=== PATIENT | female | born 1950 | race Caucasian/White ===

== ENCOUNTER 2018-04-24 15:09 | Outpatient (CLI) | payer MEDICARE, OTHER ==
[~2018-04-24] VITALS: Ht 170.2 cm; Wt 90.0 kg
[2018-04-24 15:38] VITALS: Ht 170.2 cm; Wt 90.0 kg
== END 2018-04-24 16:25 | disposition home or self-care (01) ==
LOC: D.OPS 15:09
DX: M81.0 Age-related osteoporosis without current pathological fracture (principal)

== ENCOUNTER 2019-09-02 08:00 | Outpatient (CLI) | payer MEDICARE, BC ==
[2018-04-24 15:38] VITALS: BMI 31.1
== END 2019-09-02 23:59 | disposition home or self-care (01) ==
LOC: D.MAMMO 08:00
PROVIDERS: ATTEND Family Medicine
DX: Z12.31 Encounter for screening mammogram for malignant neoplasm of breast (principal)

== ENCOUNTER 2019-12-10 14:41 | Outpatient (CLI) | payer MEDICARE, BC ==
[~2019-12-10] VITALS: Ht 170.2 cm; Wt 90.9 kg
[2019-12-10 15:11] VITALS: BP 153/87; Ht 170.2 cm; Wt 90.9 kg
--- NOTE | 2019-12-10 15:24 | NUR ---
1523 PT STATES SHE HAS A 1600 APPT AND MUST LEAVE. DC INSTS GIVEN RELEASED AMB.
== END 2019-12-10 15:23 | disposition home or self-care (01) ==
LOC: D.OPS 14:41
PROVIDERS: ATTEND Family Medicine
DX: M81.0 Age-related osteoporosis without current pathological fracture (principal)

== ENCOUNTER → 2020-05-05 13:59 | Outpatient (CLI) | payer MEDICARE, BC ==
[2019-12-10 15:11] VITALS: BMI 31.4
== END | disposition home or self-care (01) ==
LOC: D.RAD 04-29 08:30
PROVIDERS: ATTEND Family Medicine
DX: R47.02 Dysphasia (principal)

== ENCOUNTER 2020-06-09 11:27 | Outpatient (CLI) | payer MEDICARE, BC ==
[~2020-06-09] VITALS: Ht 170.2 cm; Wt 90.9 kg
[2020-06-09 11:46] VITALS: Ht 170.2 cm; Wt 90.9 kg
== END 2020-06-09 11:51 | disposition home or self-care (01) ==
LOC: D.OPS 11:27
PROVIDERS: ATTEND Family Medicine
DX: M81.0 Age-related osteoporosis without current pathological fracture (principal)

== ENCOUNTER 2020-12-09 12:16 | Outpatient (CLI) | payer MEDICARE, BC ==
[~2020-12-09] VITALS: Ht 170.2 cm; Wt 90.9 kg
[2020-12-09 12:47] VITALS: BP 141/76; Ht 170.2 cm; Wt 90.9 kg
== END 2020-12-09 13:10 | disposition home or self-care (01) ==
LOC: D.OPS 12:16
PROVIDERS: ATTEND Family Medicine
DX: M81.0 Age-related osteoporosis without current pathological fracture (principal)

== ENCOUNTER 2020-12-24 18:33 | Outpatient (CLI) | payer MEDICARE, BC ==
[2020-12-09 12:47] VITALS: BMI 31.4
== END 2020-12-24 23:59 | disposition home or self-care (01) ==
LOC: D.MAMMO 18:33
PROVIDERS: ATTEND Family Medicine
DX: Z12.31 Encounter for screening mammogram for malignant neoplasm of breast (principal)